=== PATIENT | female | born 1945 | race Caucasian/White ===

== ENCOUNTER 2022-07-16 10:23 | Outpatient (CLI) | payer MEDICARE, OTHER ==
[2022-07-16 11:53] LABS: Hemoglobin 9.2 g/dL (12.0-15.5); Mean Corpuscular HGB CONC 33.7 g/dL (32.0-36.0); Mean Corpuscular Hemoglobin 33.1 pg (27.0-33.0); Mean Corpuscular Volume 98.2 fl (81.6-98.3); Mean Platelet Volume 11.2 fl (7.4-10.4); Platelet Count 64 10x3/uL (150-450); RBC Distribution Width 13.3 % (11.5-14.5); Red Blood Cell (RBC) Count 2.78 10x6/uL (3.90-5.03); White Blood Cell (WBC) Count 2.7 10x3/uL (3.5-10.5)
[2022-07-16 12:05] LABS: Anion Gap 12 mmol/L (10-20); BUN (Urea Nitrogen) 16 mg/dL (9.8-20.1); Calc. Creatinine Clearance 0 mL/min (70-130); Calcium 8.5 mg/dL (7.8-10.44); Carbon Dioxide 21 mmol/L (23-31); Chloride 107 mmol/L (98-107); Estimated GFR 39; Glucose 314 mg/dL (83-110); Potassium 4.4 mmol/L (3.5-5.1); Sodium 136 mmol/L (136-145)
== END 2022-07-16 10:24 | disposition home or self-care (01) ==
LOC: CSHLAB 10:23
PROVIDERS: ATTEND Orthopaedic Surgery
DX: Z01.812 Encounter for preprocedural laboratory examination (principal); S83.282A Other tear of lateral meniscus, current injury, left knee, initial encounter
CPT/HCPCS: 80048; 85027; 93005; 93010

== ENCOUNTER 2022-07-17 05:42 | Day surgery (SDC) | payer MEDICARE, OTHER ==
[2022-07-16 11:34] VITALS: BMI 36.0
[2022-07-17] MEDS ORDERED: Dexamethasone 10 MG/ML VIAL ONE (06:50)
[2022-07-17] MEDS ORDERED: Bupivacaine HCl 0.5%/Epinephrine 1:200,000/PF 30 ml Vial ONE (06:51)
[2022-07-17] MEDS ORDERED: CEFAZOLIN 2 GM VIAL ONE (07:50)
[2022-07-17] MEDS ORDERED: PROPOFOL 20 ML ONE (08:00)
[2022-07-17] MEDS ORDERED: Fentanyl 100 MCG/2 ML VIAL ONE (08:01)
[2022-07-17] MEDS ORDERED: Lidocaine 1% PF 5 ML VIAL ONE (08:01)
[2022-07-17] MEDS ORDERED: Dexamethasone 4 mg/ml Vial ONE (08:02)
[2022-07-17] MEDS ORDERED: Ondansetron PF 4 MG/2 ML Vial ONE (08:02)
[2022-07-17] MEDS ORDERED: PHENYLEPHRINE-NS 100 MCG/ML 10 ML SYRINGE ONE (08:27)
== END 2022-07-17 10:05 | disposition home or self-care (01) ==
LOC: CSHSDC 05:42
PROVIDERS: ATTEND Orthopaedic Surgery
PROC: 0SBD4ZZ Excision of Left Knee Joint, Percutaneous Endoscopic Approach (ICD-10-PCS; principal; 2022-07-17)
DX: M23.252 Derangement of posterior horn of lateral meniscus due to old tear or injury, left knee (principal); M22.42 Chondromalacia patellae, left knee; I10 Essential (primary) hypertension; E11.9 Type 2 diabetes mellitus without complications; I48.91 Unspecified atrial fibrillation; Z79.84 Long term (current) use of oral hypoglycemic drugs; Z79.899 Other long term (current) drug therapy
CPT/HCPCS: J1100; J2405; J2704; J3010